=== PATIENT | female | born 1960 | race African-American/Black ===

== ENCOUNTER 2017-06-30 08:00 | Outpatient (CLI) | payer OTHER | END 2017-06-30 08:01 | disposition home or self-care (01) | LOC: BICMAMMO 08:00 | PROVIDERS: ATTEND Internal Medicine Medical Oncology | DX: Z12.31 Encounter for screening mammogram for malignant neoplasm of breast (principal) | CPT/HCPCS: 77063; 77067; G0202 ==

== ENCOUNTER 2017-11-09 08:45 | Outpatient (CLI) | payer OTHER | END 2017-11-09 08:46 | disposition home or self-care (01) | LOC: BICMAMMO 08:45 | PROVIDERS: ATTEND Internal Medicine | DX: M85.80 Other specified disorders of bone density and structure, unspecified site (principal) | CPT/HCPCS: 77080 ==

== ENCOUNTER 2017-12-14 16:56 | Outpatient (CLI) | payer OTHER ==
--- NOTE | 2017-12-14 17:47 | RAD ---
ABDOMINAL SURVEY WITH UPRIGHT CHEST AND TWO VIEW ABDOMEN 12/14/17 HISTORY: Bloating. GE reflux. Rectal spasm. Lungs are clear. Heart and mediastinum unremarkable. Surgical clips in the right axilla noted. Supine upright views of abdomen show cholecystectomy clips. Bowel gas pattern unremarkable. Scattered stool and gas in the colon. There is a rounded amorphous calcification overlying the pelvis suggesti ng a calcified fibroid uterus measuring up to 5 cm. IMPRESSION: 1. Unremarkable bowel gas pattern. 2. Evidence of a calcified fibroid. POS: ACRTER
== END 2017-12-14 16:57 | disposition home or self-care (01) ==
LOC: RAD 16:56
PROVIDERS: ATTEND Internal Medicine Gastroenterology
DX: K21.9 Gastro-esophageal reflux disease without esophagitis (principal); K59.4 Anal spasm; R14.0 Abdominal distension (gaseous); D21.9 Benign neoplasm of connective and other soft tissue, unspecified
CPT/HCPCS: 74022

== ENCOUNTER 2018-07-01 11:13 | Outpatient (CLI) | payer OTHER | END 2018-07-01 11:14 | disposition home or self-care (01) | LOC: BICMAMMO 11:13 | PROVIDERS: ATTEND Internal Medicine Medical Oncology | DX: Z12.31 Encounter for screening mammogram for malignant neoplasm of breast (principal); Z85.3 Personal history of malignant neoplasm of breast | CPT/HCPCS: 77063; 77067 ==

== ENCOUNTER 2019-06-21 14:49 | Outpatient (CLI) | payer OTHER ==
[2019-06-21 16:00] LABS: #Basophils 0.1 thou/uL (0.0-0.2); #Eosinphils 0.1 thou/uL (0.0-0.7); #Lymphocytes 3.8 thou/uL (1.20-3.40); #Monocytes 0.5 thou/uL (0.11-0.59); #Neutrophils 4.3 thou/uL (1.40-6.50); %Basophils 0.7 % (0.0-1.0); %Eosinophils 1.1 % (0.0-10.0); %Lymphocytes 43.3 % (21.0-51.0); Hemoglobin 12.6 g/dL (12.0-16.0); Mean Corpuscular HGB CONC 31.6 g/dL (32.0-36.0); Mean Corpuscular Hemoglobin 22.6 pg (27.0-31.0); Mean Corpuscular Volume 71.6 fL (78.0-98.0); Mean Platelet Volume 8.5 fL (7.4-10.4); Platelet Count 253 thou/uL (130-400); RBC Distribution Width 12.8 % (11.5-14.5); Red Blood Cell (RBC) Count 5.56 mill/uL (4.20-5.40); White Blood Cell (WBC) Count 8.8 thou/uL (4.8-10.8)
[2019-06-21 16:01] LABS: MDiff Complete? YES; Microcytosis SLIGHT = 6-15 cells (100X) (0-5/hpf); Ovalocytes SLIGHT = 2-5 cells (100X) (0-1/hpf); Platelet Morphology Comment Appears Adequate; Polychromasia SLIGHT = 2-3 cells (100X) (0-2/hpf); Target Cells SLIGHT = 2-5 cells (100X) (0-1/hpf)
[2019-06-21 16:03] LABS: ALT (SGPT) 27 U/L (8-55); AST (SGOT) 24 U/L (5-34); Albumin 4.6 g/dL (3.5-5.0); Alkaline Phosphatase 89 U/L (40-110); Anion Gap 15 mmol/L (10-20); BUN (Urea Nitrogen) 8 mg/dL (9.8-20.1); Bilirubin, Total 0.4 mg/dL (0.2-1.2); Calc. Creatinine Clearance 0 mL/min (70-130); Calcium 9.5 mg/dL (7.8-10.44); Carbon Dioxide 23 mmol/L (22-29); Chloride 108 mmol/L (98-107); Estimated GFR-MDRD 83; Globulin 3.3 g/dL (2.4-3.5); Glucose 89 mg/dL (70-105); Potassium 4.1 mmol/L (3.5-5.1); Protein, Total 7.9 g/dL (6.0-8.3); Sodium 142 mmol/L (136-145)
== END 2019-06-21 14:50 | disposition home or self-care (01) ==
LOC: LABBT 14:49
PROVIDERS: ATTEND Internal Medicine Cardiovascular Disease
DX: Z01.812 Encounter for preprocedural laboratory examination (principal); R07.9 Chest pain, unspecified
CPT/HCPCS: 80053; 85025

== ENCOUNTER → 2019-06-23 | Day surgery (SDC) | payer OTHER ==
[2019-06-21 15:10] VITALS: BMI 27.6
[~2019-06-23] MED LIST: Fentanyl 100 MCG/2 ML VIAL ONE; Heparin (Artline) 1,000 ML ONE; Heparin 10,000 UNITS/1 ML VIAL ONE; Iopamidol 370 76% 100 ML VIAL ONE; Lidocaine 1% (PF) 30 ML VIAL ONE; Midazolam HCl 2 mg/2 ml Vial ONE; Nitroglycerin 100MG/250ML BOT 250 ML ONE; Verapamil 5 MG/2 ML VIAL ONE
== END ==
LOC: EEVIPCON 06-21 14:30 → CCL 06:18
PROVIDERS: ATTEND Internal Medicine Cardiovascular Disease
PROC: 4A023N7 Measurement of Cardiac Sampling and Pressure, Left Heart, Percutaneous Approach (ICD-10-PCS; principal; 2019-06-23)
PROC: B2111ZZ Fluoroscopy of Multiple Coronary Arteries using Low Osmolar Contrast (ICD-10-PCS; principal; 2019-06-23)
DX: I25.10 Atherosclerotic heart disease of native coronary artery without angina pectoris (principal); I10 Essential (primary) hypertension; E78.5 Hyperlipidemia, unspecified; G25.81 Restless legs syndrome; K21.9 Gastro-esophageal reflux disease without esophagitis; Z85.3 Personal history of malignant neoplasm of breast; Z79.899 Other long term (current) drug therapy
CPT/HCPCS: 76942; 93458; 99152; 99153; C1769; J1644; J2001; J2250; J3010; Q9967

== ENCOUNTER 2019-07-06 10:42 | Outpatient (CLI) | payer OTHER ==
--- NOTE | 2019-07-06 11:20 | BD ---
EXAM: DEXA BONE DENSITY EXAMINATION: HISTORY: Osteoporosis screening COMPARISON: Prior exam dated December 31, 2015 and July 10, 2009 FINDINGS: Lumbar Spine: BMD (g/sq cm) L1 1.154 T score: 1.5 . Z score: 1.8 L2 1.319 T score: 2.6 ; Z score: 3.0 L3 1.394 T score: 2.8 ; Z score: 3.2 L4 1.238 T score: 1.6 , Z score: 2.0 Total L1-L4 1.279 T score: 2.1, Z score: 2.5 Left femoral neck 0.992; T score: 1.3, Z s core: 1.2 Total proximal left femur 1.177; T score: 1.9, Z scor e: 1.6 The bone mineral density of the left total hip region has declined 4.8% from the baseline and 4.1% fr om the previous evaluation dated December 31, 2015. IMPRESSION: Based on the WHO criteria, the patient's bone mineral density is considerednormal. The bone mineral d ensity has declined from the baseline and previous evaluation in 2016. Transcribed Date/Time: 07/06/2019 11:39 AM
--- NOTE | 2019-07-06 13:37 | MMO ---
Bilateral MAMMO Bilat Screen [facility]. CLINICAL HISTORY: Patient is 59 years old and is seen for screening. The patient has no family history of breast cancer. The patient has a history of malignant (generic) in the right breast at age 49. The patient has a history of right Lumpectomy - malignant. VIEWS: The views performed were: bilateral craniocaudal with tomosynthesis and bilateral mediolateral oblique with tomosynthesis. FILMS COMPARED: The present examination has been compared to prior imaging studies performed at [facility] on 06/30/2017 and 07/01/2018, and at [facility] on 06/24/2015 and 06/25/2016. This study has been interpreted with the assistance of computer-aided detection. MAMMOGRAM FINDINGS: There are scattered fibroglandular densities. There are stable dystrophic calcifications with associated post-surgical scar seen in the upper region of the right breast. There are no suspicious masses, suspicious calcifications, or new areas of architectural distortion. IMPRESSION: THERE IS NO MAMMOGRAPHIC EVIDENCE OF MALIGNANCY. A ROUTINE FOLLOW-UP MAMMOGRAM IN 1 YEAR IS RECOMMENDED. THE RESULTS OF THIS EXAM WERE SENT TO THE PATIENT. ACR BI-RADS Category 2 - Benign finding MAMMOGRAPHY NOTE: 1. A negative mammogram report should not delay a biopsy if a dominant of clinically suspicious mass is present. 2. Approximately 10% to 15% of breast cancers are not detected by mammography. 3. Adenosis and dense breasts may obscure an underlying neoplasm. Reported by: FLORIDALMA YANG MD Electonically Signed: [id number]
== END 2019-07-06 10:43 | disposition home or self-care (01) ==
LOC: BICMAMMO 10:42
PROVIDERS: ATTEND Internal Medicine Medical Oncology
DX: Z12.31 Encounter for screening mammogram for malignant neoplasm of breast (principal); Z13.820 Encounter for screening for osteoporosis; Z85.3 Personal history of malignant neoplasm of breast
CPT/HCPCS: 77063; 77067; 77080

== ENCOUNTER 2020-07-09 13:09 | Outpatient (CLI) | payer OTHER ==
--- NOTE | 2020-07-09 14:02 | MMO ---
Bilateral MAMMO Bilat Screen [facility]. CLINICAL HISTORY: Patient is 60 years old and is seen for screening. The patient has no family history of breast cancer. The patient has a history of malignant (generic) in the right breast at age 49. The patient has a history of right Lumpectomy - malignant. VIEWS: The views performed were: bilateral craniocaudal with tomosynthesis and bilateral mediolateral oblique with tomosynthesis. FILMS COMPARED: The present examination has been compared to prior imaging studies performed at [facility] on 06/30/2017, 07/01/2018 and 07/06/2019, and at [facility] on 06/25/2016. This study has been interpreted with the assistance of computer-aided detection. MAMMOGRAM FINDINGS: There are scattered fibroglandular densities. There are stable dystrophic calcifications with associated post-surgical scar seen in the upper region of the right breast. There are no suspicious masses, suspicious calcifications, or new areas of architectural distortion. IMPRESSION: THERE IS NO MAMMOGRAPHIC EVIDENCE OF MALIGNANCY. A ROUTINE FOLLOW-UP MAMMOGRAM IN 1 YEAR IS RECOMMENDED. THE RESULTS OF THIS EXAM WERE SENT TO THE PATIENT. ACR BI-RADS Category 2 - Benign finding MAMMOGRAPHY NOTE: 1. A negative mammogram report should not delay a biopsy if a dominant of clinically suspicious mass is present. 2. Approximately 10% to 15% of breast cancers are not detected by mammography. 3. Adenosis and dense breasts may obscure an underlying neoplasm. Reported by: YESICA TO MD Electonically Signed: [id number]
== END 2020-07-09 13:10 | disposition home or self-care (01) ==
LOC: BICMAMMO 13:09
PROVIDERS: ATTEND Internal Medicine Medical Oncology
DX: Z12.31 Encounter for screening mammogram for malignant neoplasm of breast (principal); Z85.3 Personal history of malignant neoplasm of breast; Z98.890 Other specified postprocedural states
CPT/HCPCS: 77063; 77067

== ENCOUNTER 2021-07-18 10:02 | Outpatient (CLI) | payer BC | END 2021-07-18 10:03 | disposition home or self-care (01) | LOC: BICMAMMO 10:02 | PROVIDERS: ATTEND Internal Medicine Medical Oncology | DX: Z12.31 Encounter for screening mammogram for malignant neoplasm of breast (principal); Z13.820 Encounter for screening for osteoporosis; R07.82 Intercostal pain; Z98.890 Other specified postprocedural states; Z85.3 Personal history of malignant neoplasm of breast | CPT/HCPCS: 77063; 77067; 77080 ==

== ENCOUNTER 2022-05-19 10:37 | Outpatient (CLI) | payer BC | END 2022-05-19 10:38 | disposition home or self-care (01) | LOC: NM 10:37 | PROVIDERS: ATTEND Internal Medicine Medical Oncology | DX: C50.911 Malignant neoplasm of unspecified site of right female breast (principal); M25.511 Pain in right shoulder; M25.512 Pain in left shoulder; M54.6 Pain in thoracic spine; M79.604 Pain in right leg; M19.90 Unspecified osteoarthritis, unspecified site | CPT/HCPCS: 78306; A9503 ==

== ENCOUNTER 2022-05-27 08:00 | Outpatient (CLI) | payer BC | END 2022-05-27 08:01 | disposition home or self-care (01) | LOC: PET 08:00 | PROVIDERS: ATTEND Internal Medicine Medical Oncology | DX: C50.911 Malignant neoplasm of unspecified site of right female breast (principal); R93.7 Abnormal findings on diagnostic imaging of other parts of musculoskeletal system | CPT/HCPCS: 78816; A9552 ==

== ENCOUNTER 2022-07-20 12:59 | Outpatient (CLI) | payer BC | END 2022-07-20 13:00 | disposition home or self-care (01) | LOC: BICMAMMO 12:59 | PROVIDERS: ATTEND Internal Medicine Medical Oncology | DX: Z12.31 Encounter for screening mammogram for malignant neoplasm of breast (principal); Z13.820 Encounter for screening for osteoporosis; Z85.3 Personal history of malignant neoplasm of breast; Z98.890 Other specified postprocedural states | CPT/HCPCS: 77063; 77067; 77080 ==

== ENCOUNTER 2022-09-15 12:33 | Outpatient (CLI) | payer BC ==
[~2022-09-15 12:33] MED LIST changes: -Fentanyl 100 MCG/2 ML VIAL ONE; -Heparin (Artline) 1,000 ML ONE; -Heparin 10,000 UNITS/1 ML VIAL ONE; -Iopamidol 370 76% 100 ML VIAL ONE; +Iopamidol-370 76% 500 ML 1 ML ONE; -Lidocaine 1% (PF) 30 ML VIAL ONE; -Midazolam HCl 2 mg/2 ml Vial ONE; -Nitroglycerin 100MG/250ML BOT 250 ML ONE; -Verapamil 5 MG/2 ML VIAL ONE
== END 2022-09-15 12:34 | disposition home or self-care (01) ==
LOC: BICCT 12:33
PROVIDERS: ATTEND Internal Medicine Gastroenterology
DX: R10.11 Right upper quadrant pain (principal); C50.411 Malignant neoplasm of upper-outer quadrant of right female breast; R79.89 Other specified abnormal findings of blood chemistry; R59.0 Localized enlarged lymph nodes
CPT/HCPCS: 71260; 74160; 82565

== ENCOUNTER → 2022-09-15 | Day surgery (SDC) | payer BC | END | disposition home or self-care (01) | LOC: BICULT 12:31 | PROVIDERS: ATTEND Internal Medicine Medical Oncology | PROC: 07B63ZX Excision of Left Axillary Lymphatic, Percutaneous Approach, Diagnostic (ICD-10-PCS; principal; 2022-09-15) | DX: R59.0 Localized enlarged lymph nodes (principal); Z85.3 Personal history of malignant neoplasm of breast | CPT/HCPCS: 38505; 71260; 74160; 82565; 88305; Q9967 ==

== ENCOUNTER 2022-10-23 13:52 | Outpatient (CLI) | payer BC | END 2022-10-23 13:53 | disposition home or self-care (01) | LOC: BICULT 13:52 | PROVIDERS: ATTEND Internal Medicine Rheumatology | DX: R79.89 Other specified abnormal findings of blood chemistry (principal); Z85.3 Personal history of malignant neoplasm of breast | CPT/HCPCS: 76705 ==

== ENCOUNTER 2023-07-30 13:27 | Outpatient (CLI) | payer BC | END 2023-07-30 13:28 | disposition home or self-care (01) | LOC: BICMAMMO 13:27 | PROVIDERS: ATTEND Internal Medicine | DX: Z12.31 Encounter for screening mammogram for malignant neoplasm of breast (principal); Z85.3 Personal history of malignant neoplasm of breast; Z91.89 Other specified personal risk factors, not elsewhere classified; Z98.890 Other specified postprocedural states | CPT/HCPCS: 77063; 77067 ==

== ENCOUNTER 2024-04-05 10:56 | Outpatient (CLI) | payer OTHER ==
[2024-04-05 12:31] LABS: #Basophils 0.05 10x3/uL (0.0-0.2); %Basophils 0.7 % (0.0-1.0); %Eosinophils 3.3 % (0.0-10.0); %Lymphocytes 40.1 % (21.0-51.0); %Monocytes 9.2 % (0.0-10.0); %Neutrophils 46.6 % (42.0-75.0); Hematocrit 40.2 % (36.0-47.0); Hemoglobin 12.1 g/dL (12.0-16.0); Mean Corpuscular HGB CONC 30.1 g/dL (32.0-36.0); Mean Corpuscular Hemoglobin 21.7 pg (27.0-31.0); Mean Platelet Volume 9.5 fL (7.4-10.4); Platelet Count 305 10x3/uL (130-400); RBC Distribution Width 15.6 % (11.5-14.5); Red Blood Cell (RBC) Count 5.58 mill/uL (4.20-5.40)
[2024-04-05 12:57] LABS: Anion Gap 12 mmol/L (10-20); BUN (Urea Nitrogen) 9 mg/dL (9.8-20.1); Calc. Creatinine Clearance 0 mL/min (70-130); Calcium 9.6 mg/dL (7.8-10.44); Carbon Dioxide 26 mmol/L (23-31); Chloride 108 mmol/L (98-107); Estimated GFR 76; Glucose 93 mg/dL (80-115); Sodium 142 mmol/L (136-145)
[2024-04-05 13:19] LABS: Microcytosis SLIGHT = 6-15 cells HPF (0-5); Platelet Adequacy Comment Platelets Normal
== END 2024-04-05 10:57 | disposition home or self-care (01) ==
LOC: LABBT 10:56
PROVIDERS: ATTEND Orthopaedic Surgery
DX: Z01.818 Encounter for other preprocedural examination (principal)
CPT/HCPCS: 80048; 85025; 93005; 93010

== ENCOUNTER 2024-04-07 06:47 | Day surgery (SDC) | payer OTHER ==
[2024-04-05 11:07] VITALS: BMI 27.0
[2024-04-07] MEDS ORDERED: Bupivacaine PF 0.5% 30 ML VIAL ONE (08:00)
[2024-04-07] MEDS ORDERED: PROPOFOL 20 ML ONE ×2 (08:00→09:49)
[2024-04-07] MEDS ORDERED: fentaNYL 50 mcg/mL 1 mL Vial ONE ×4 (08:00→12:54)
[2024-04-07] MEDS ORDERED: Lidocaine 2% PF 5 ML VIAL ONE (08:01)
[2024-04-07] MEDS ORDERED: Sodium Chloride 0.9% 100 ML ONE (08:17)
[2024-04-07] MEDS ORDERED: CEFAZOLIN 2 GM VIAL ONE (08:17)
[2024-04-07] MEDS ORDERED: Ondansetron PF 4 MG/2 ML Vial ONE ×2 (09:49→14:05)
[2024-04-07] MEDS ORDERED: Lidocaine 1% PF 5 ML VIAL ONE (09:49)
[2024-04-07] MEDS ORDERED: fentaNYL PF 100 MCG/2 ML SYRINGE ONE (09:50)
[2024-04-07] MEDS ORDERED: PHENYLEPHRINE-NS 100 MCG/ML 10 ML SYRINGE ONE (10:22)
[2024-04-07] MEDS ORDERED: Dexamethasone 20 MG/5 ML VIAL ONE (10:22)
[2024-04-07] MEDS ORDERED: Bupivacaine HCl 0.5%/Epinephrine 1:200,000/PF 30 ml Vial ONE (10:22)
[2024-04-07] MEDS ORDERED: Glycopyrrolate 0.2 MG/ML 5 ML SYRINGE ONE (10:33)
== END 2024-04-07 14:32 | disposition home or self-care (01) ==
LOC: SDC 06:47
PROVIDERS: ATTEND Orthopaedic Surgery
PROC: 0SBD4ZZ Excision of Left Knee Joint, Percutaneous Endoscopic Approach (ICD-10-PCS; principal; 2024-04-07)
PROC: 3E0T3BZ Introduction of Anesthetic Agent into Peripheral Nerves and Plexi, Percutaneous Approach (ICD-10-PCS; principal; 2024-04-07)
DX: S83.282A Other tear of lateral meniscus, current injury, left knee, initial encounter (principal); M94.262 Chondromalacia, left knee; I10 Essential (primary) hypertension; E78.00 Pure hypercholesterolemia, unspecified; Z90.49 Acquired absence of other specified parts of digestive tract; X58.XXXA Exposure to other specified factors, initial encounter
CPT/HCPCS: J0665; J1100; J2001; J2405; J2704; J3010

== ENCOUNTER 2024-04-21 15:50 | Outpatient (CLI) | payer OTHER | END 2024-04-21 15:51 | disposition home or self-care (01) | LOC: ULT 15:50 | PROVIDERS: ATTEND Orthopaedic Surgery | DX: M79.605 Pain in left leg (principal); Z98.890 Other specified postprocedural states ==